=== PATIENT | female | born 1985 | race African-American/Black ===

== ENCOUNTER 2021-07-07 14:45 | Emergency (ER) | payer OTHER ==
[~2021-07-07] VITALS: Ht 160 cm; Wt 76.0 kg
[2021-07-07] MEDS ORDERED: ONDANSETRON ODT 4 MG ONE (15:28)
[2021-07-07] MEDS ORDERED: ONDANSETRON ODT 4 MG PO ONE (15:30)
[2021-07-07 15:32] VITALS: BP 134/77
--- NOTE | 2021-07-07 15:35 | NUR ---
PT PRESENTS TO ED WITH C/O UTERINE CRAMPING, INTERMITTENTLY X 3 DAYS. PT'S LAST PERIOD WAS 1.5 MONTHS AGO, NEG TEST AT HOME. PT DENIES BLEEDING/DISCHARGE VAGINALLY. PT A&O, RESPS EVEN AND UNLABORED. REPORTS SHE HAS BEEN NAUSEATED BUT NOT AT THIS TIME, DECLINES ZOFRAN. PT UPATED WITH POC, INSTRUCTED TO PROVIDE CLEAN CATCH UA, SUPPLIES AT BEDSIDE.
--- NOTE | 2021-07-07 15:48 | NUR ---
REPORT GIVEN TO TASK BELKIS BREEN FOR MEAL BREAK, LAB AT BEDSIDE.
--- NOTE | 2021-07-07 15:49 | NUR ---
DEDRA RN, UA COLLECTED AND SENT TO LAB
[2021-07-07 16:01] LABS: BASOPHILS % (AUTO) 0 % (0-1); EOSINOPHILS % (AUTO) 1 % (1-7); LYMPHOCYTES % (AUTO) 19 % (22-44); MEAN CORPUSCULAR HEMOGLOBIN 27.1 pg (27.0-34.8); MEAN CORPUSCULAR HGB CONC 31.8 g/dL (32.4-35.8); MEAN PLATELET VOLUME 7.9 fL (7.4-10.4); MONOCYTES % (AUTO) 4 % (2-9); NEUTROPHILS % (AUTO) 77 % (42-75); PLATELET COUNT 259 x10^3/uL (130-400); RED CELL DISTRIBUTION WIDTH 14.1 % (9.6-15.2)
[2021-07-07 16:06] LABS: MICROSCOPIC AUTO
[2021-07-07 16:09] LABS: ALANINE AMINOTRANSFERASE 24 U/L (12-78); ALBUMIN 3.3 g/dL (3.4-5.0); ANION GAP 6 mmol/L (5-15); CHLORIDE 105 mmol/L (98-107); CREATININE 1.02 mg/dL (0.55-1.02)
[2021-07-07 16:26] LABS: ALKALINE PHOSPHATASE 60 U/L (45-117); BILIRUBIN,TOTAL 0.2 mg/dL (0.2-1.0); TOTAL PROTEIN 7.1 g/dL (6.4-8.2)
--- NOTE | 2021-07-07 16:26 | NUR ---
REPORT TAKEN FROM BELKIS BREEN, CARE RESUMED BY THIS RN.
--- NOTE | 2021-07-07 17:30 | NUR ---
Patient given discharge instructions and they have confirmed that they understand the instructions. Patient ambulatory with steady gait. NAD, all questions answered appropriately, denies additional needs at this time. No personal belongings left in room after discharge.
== END 2021-07-07 17:46 | disposition home or self-care (01) ==
LOC: ED 17:15
DX: O26.891 Other specified pregnancy related conditions, first trimester (principal); R10.2 Pelvic and perineal pain; Z3A.01 Less than 8 weeks gestation of pregnancy
CPT/HCPCS: 36415; 76830; 80053; 81001; 84702; 84703; 85025; 86901; 87086; 99284